=== PATIENT | male | born 1955 | race Two or more races ===

== ENCOUNTER 2022-06-04 17:26 | Emergency (ER) | payer OTHER ==
[~2022-06-04] VITALS: Ht 170.2 cm; Wt 97.5 kg
[2022-06-04] MEDS ORDERED: MONTELUKAST SODI4 M1 PO (17:39)
[2022-06-04] MEDS ORDERED: GLUMETZA1000 MG PO (17:39)
[2022-06-04] MEDS ORDERED: LIPITOR20 MG PO (17:39)
[2022-06-04] MEDS ORDERED: LOSARTAN POTAS100 MG PO (17:39)
[2022-06-04] MEDS ORDERED: GLIPIZIDE XL2.5 MG PO (17:40)
[2022-06-04] MEDS ORDERED: LANTUS SOL100 UNIT/1 SUBCUTANEO (17:40)
[2022-06-04] MEDS ORDERED: TRULICITY1.5 MG/0.5 SUBCUTANEO (17:41)
[2022-06-04] MEDS ORDERED: TAMS0.4C PO (21:04)
[2022-06-04] MEDS ORDERED: KETO10TA2 PO (21:04)
[2022-06-04] MEDS ORDERED: CIPRO500 MG PO (21:04)
== END 2022-06-04 21:13 | disposition home or self-care (01) ==
LOC: ER 17:26
DX: N20.9 Urinary calculus, unspecified (principal); R10.32 Left lower quadrant pain; E11.9 Type 2 diabetes mellitus without complications; Z79.4 Long term (current) use of insulin; Z79.84 Long term (current) use of oral hypoglycemic drugs; K57.30 Diverticulosis of large intestine without perforation or abscess without bleeding; K40.20 Bilateral inguinal hernia, without obstruction or gangrene, not specified as recurrent